=== PATIENT | male | born 1980 | race Caucasian/White ===

== ENCOUNTER → 2018-03-03 23:20 | Emergency (ER) | payer SELFPAY ==
[~2018-03-03 23:20] MED LIST: Acetaminophen TAB* 325 MG PO ONE; Albuterol/Ipratropium NEB.SOL* Albuterol 2.5 MG/Ipratropium 0.5 MG 3 ML INH ONE; Azithromycin TAB* 250 MG PO ONE; Ibuprofen TAB* 800 MG PO ONE; predniSONE TAB* 20 MG PO ONE
--- NOTE | 2018-03-04 00:07 | ED ---
Respiratory - HPI Summary HPI Summary: Patient is a 37-year-old male who presents emergency department for cough, fever and shortness of breath 3 days. Patient has a history of remote exercise -induced asthma and is a daily smoker. Patient notes he has been feeling more short of breath over the last several days and tonight was having a difficult time lying flat. Notes a productive cough. Patient notes his has a nebulizer and he didn't 4 treatments today with mild improvement. Symptoms are moderate in severity. Lying flat and activities make symptoms worse. Nothing makes symptoms better. - History of Current Complaint Chief Complaint: EDUpperRespComplaint Stated Complaint: DIFF BREATHING/SORE THROAT Time Seen by Provider: 03/03/18 23:53 Hx Obtained From: Patient Pain Intensity: 0 - Allergy/Home Medications Allergies/Adverse Reactions: Allergies Allergy/AdvReac Type Severity Reaction Status Date / Time No Known Allergies Allergy Verified 03/03/18 23:39 Home Medications: Home Medications Omeprazole CAP* 40 mg PO DAILY PRN 03/03/18 [History Confirmed 03/03/18] PMH/Surg Hx/FS Hx/Imm Hx Previously Healthy: Yes Endocrine/Hematology History: Reports: Hx Thyroid Disease Denies: Hx Diabetes Cardiovascular History: Reports: Hx Hypertension Respiratory History: Reports: Hx Asthma - IN CHILDHOOD. EXERCISE INDUCED Denies: Hx Chronic Obstructive Pulmonary Disease (COPD) GI History: Denies: Hx Ulcer Comment Only: Other GI Disorders - previous gastric ulcer Neurological History: Denies: Other Neuro Impairments/Disorders - Surgical History Surgery Procedure, Year, and Place: [place] surgery 2005 Infectious Disease History: No Infectious Disease History: Denies: Hx Hepatitis, Hx Human Immunodeficiency Virus (HIV), Traveled Outside the [place] in Last 30 Days - Family History Known Family History: Positive: Respiratory Disease - COPD - Social History Occupation: Unemployed Lives: With Family Alcohol Use: Occasionally Substance Use Type: Reports: None Smoking Status (MU): Heavy Every Day Tobacco Smoker Review of Systems Constitutional: Negative Eyes: Negative ENT: Negative Cardiovascular: Negative Positive: Shortness Of Breath, Cough Gastrointestinal: Negative Musculoskeletal: Negative Skin: Negative Neurological: Negative All Other Systems Reviewed And Are Negative: Yes Physical Exam Triage Information Reviewed: Yes Vital Signs On Initial Exam: Initial Vitals Temp Pulse Resp BP Pulse Ox 99.6 F 102 20 124/83 93 03/03/18 23:30 03/03/18 23:30 03/03/18 23:30 03/03/18 23:30 03/03/18 23:30 Vital Signs Reviewed: Yes Appearance: Positive: Well-Appearing - Pt. sitting up in bed in NAD. Family present. Breathing easily on RA. Speaking in full sentences. Obese. Skin: Positive: Warm, Dry Head/Face: Positive: Normal Head/Face Inspection Eyes: Positive: Normal, EOMI, Conjunctiva Clear ENT: Positive: Pharyngeal erythema, TMs normal. Negative: Tonsillar swelling, Tonsillar exudate Neck: Positive: Supple Respiratory/Lung Sounds: Positive: Other - Prolonged expiratory phase with wheezes throughout. No accessory muscle use, stridors, retractions. Cardiovascular: Positive: Normal, RRR Neurological: Positive: Normal, CN Intact II-III Psychiatric: Positive: Affect/Mood Appropriate Diagnostics - Vital Signs Vital Signs Temp Pulse Resp BP Pulse Ox 03/03/18 23:30 99.6 F 102 20 124/83 93 - Laboratory Lab Statement: Any lab studies that have been ordered have been reviewed, and results considered in the medical decision making process. Disposition - Course Course Of Treatment: Pt. presenting for cough and wheeze. O2 93% on RA. Pt. given duoneb, motrin and prednisone. CXR negative for infiltrate or acute change per my reading. Negative flu. ON re-exam after breathing treatment pt. is moving air better and wheezing more. Will given another breathing treatment. 0145: After second treatment pt. is feeling better and wheezing has greatly improved. O2 saturation 92% on RA. Will ambulate with pulse ox. Pulse ox was between 91-95% on RA. Pt. was talking while walking and did not feel short of breath. Pt. would like to be dc at this time stating he is feeling much better. Will start on zithromax and keep on a course of prednisone. Duoneb rx, pt. has nebulizer at home. To call the [facility] tomorrow for an apt. in 1 -2 days. To stop smoking. To return to ER if sxs change or worsen. Pt. understands and agrees with plan. - Differential Dx - Cardiopulmonary Differential Diagnoses - Cardiopulmonary: Asthma, Exacerbation Of COPD, Hypoxia , Influenza - Diagnoses Provider Diagnoses: Bronchospasm, Bronchitis Discharge - Sign-Out/Discharge Documenting (check all that apply): Patient Departure - Discharge Plan Condition: Improved Disposition: HOME Prescriptions: Albuterol/Ipratropium NEB.JUVENAL* [Duoneb (Albuterol 2.5 MG/Ipratropium 0.5 MG)] 1 neb INH Q6H PRN #30 neb.juvenal PRN Reason: Wheezing Azithromycin TAB* [Zithromax TAB (Z-JAYNE) 250 mg #6 tabs] 250 mg PO DAILY #4 tab predniSONE TAB* [Deltasone TAB*] 50 mg PO DAILY #5 tab Patient Education Materials: How to Stop Smoking (ED), Acute Bronchitis (ED), Bronchospasm (ED) Referrals: [facility] [Outside] Additional Instructions: Call the [facility] tomorrow morning to schedule a close follow up appointment Take medication as directed Stop smoking Return to ER if symptoms change or worsen - Billing Disposition and Condition Condition: IMPROVED Disposition: Home
[2018-03-04 02:28] VITALS: BP 161/98
== END | disposition home or self-care (01) ==
LOC: ED 23:20
DX: J45.990 Exercise induced bronchospasm (principal); F17.200 Nicotine dependence, unspecified, uncomplicated
CPT/HCPCS: 71046; 99283; A9270-GY; J7512

== ENCOUNTER 2018-09-12 23:10 | Emergency (ER) | payer SELFPAY ==
[2018-09-12 23:17] VITALS: BP 197/126
--- NOTE | 2018-09-12 23:35 | ED ---
Upper Extremity Pain - HPI Summary HPI Summary: This patient is a 38 year old M presenting to ED with a chief complaint of right hand pain and swelling since 1800 today. Patient was getting a dog away and punched the dog. The patient rates the pain 0/10 in severity. Symptoms aggravated by nothing. Symptoms alleviated by ice. Patient denies fever. - History of Current Complaint Chief Complaint: EDExtremityUpper Stated Complaint: BROKE RIGHT HAND PER PT Time Seen by Provider: 09/12/18 23:26 Hx Obtained From: Patient Mechanism Of Injury: Direct Blow Onset/Duration: Started Hours Ago - 1800 today, Traumatic - Punched dog, Still Present Timing: Constant Severity Initially: Mild Severity Currently: Mild Pain Location: Hand - Right Aggravating Factor(s): Nothing Alleviating Factor(s): Ice Associated Signs & Symptoms: Positive: Swelling - Allergies/Home Medications Allergies/Adverse Reactions: Allergies Allergy/AdvReac Type Severity Reaction Status Date / Time No Known Allergies Allergy Verified 03/03/18 23:39 Home Medications: Home Medications NK [No Home Medications Reported] 09/12/18 [History Confirmed 09/12/18] PMH/Surg Hx/FS Hx/Imm Hx Endocrine/Hematology History: Reports: Hx Thyroid Disease Denies: Hx Diabetes Cardiovascular History: Reports: Hx Hypertension Respiratory History: Reports: Hx Asthma - IN CHILDHOOD. EXERCISE INDUCED Denies: Hx Chronic Obstructive Pulmonary Disease (COPD) GI History: Denies: Hx Ulcer Comment Only: Other GI Disorders - previous gastric ulcer Neurological History: Denies: Other Neuro Impairments/Disorders - Surgical History Surgery Procedure, Year, and Place: finger surgery 2005 Infectious Disease History: No Infectious Disease History: Denies: Hx Hepatitis, Hx Human Immunodeficiency Virus (HIV), Traveled Outside the [place] in Last 30 Days - Family History Known Family History: Positive: Respiratory Disease - COPD - Social History Alcohol Use: None Hx Substance Use: No Substance Use Type: Reports: None Hx Tobacco Use: Yes Smoking Status (MU): Heavy Every Day Tobacco Smoker Review of Systems Negative: Fever Musculoskeletal: Other - Right hand pain and swelling All Other Systems Reviewed And Are Negative: Yes Physical Exam - Summary Physical Exam Summary: Appearance: Well-appearing, Well-nourished, lying in bed comfortable Skin: Warm, dry, no obvious rash Eyes: sclera anicteric, no conjunctival pallor ENT: mucous membranes moist Neck: deferred Respiratory: No signs of respiratory distress Cardiovascular: Appears well perfused, pulses are nml Abdomen: deferred Musculoskeletal: right hand focal swelling and tenderness over shaft of 5th metacarpal, no other deformity noted, motor function and perfusion normal Neurological: Awake and alert, mentation is normal, speech is fluent and appropriate Psychiatric: affect is normal, does not appear anxious or depressed Triage Information Reviewed: Yes Vital Signs On Initial Exam: Initial Vitals Temp Pulse Resp BP Pulse Ox 97.9 F 97 20 197/126 95 09/12/18 23:12 09/12/18 23:12 09/12/18 23:12 09/12/18 23:12 09/12/18 23:12 Vital Signs Reviewed: Yes Diagnostics - Vital Signs Vital Signs Temp Pulse Resp BP Pulse Ox 09/12/18 23:12 97.9 F 97 20 197/126 95 - Laboratory Lab Statement: Any lab studies that have been ordered have been reviewed, and results considered in the medical decision making process. - Radiology Hand XR Radiology Interpretation Completed By: ED Physician Summary of Radiographic Findings: Negative for fracture, pending official radiology report. Re-Evaluation - Re-Evaluation First Eval Re-Evaluation Time: 00:00 Comment: Discussed XR results with patient. Patient will be discharged home with dx of right hand sprain. Patient understands and agrees with this plan. Course/Dx - Course Course Of Treatment: This patient is a 38 year old M presenting to ED with a chief complaint of right hand pain and swelling since 1800 today. Right hand XR revealed negative for fracture, pending official radiology report. Patient will be discharged home with dx of right hand sprain. Patient understands and agrees with this plan. Discharge - Sign-Out/Discharge Documenting (check all that apply): Patient Departure - Discharge Patient Received Moderate/Deep Sedation with Procedure: No - Discharge Plan Condition: Good Disposition: HOME Patient Education Materials: Hand Sprain (ED) Referrals: Mehul Rodríguez MD [Medical Doctor] - 1 Week (if no better) - Attestation Statements Document Initiated by Scribe: Yes Documenting Scribe: Black Cruz Provider For Whom Scribe is Documenting (Include Credential): Peña Vegas MD Scribe Attestation: Black Barboza, scribed for Peña Vegas MD on 09/13/18 at 0001. Status of Scribe Document: Ready
== END 2018-09-13 00:02 | disposition home or self-care (01) ==
LOC: ED 23:10
DX: S63.91XA Sprain of unspecified part of right wrist and hand, initial encounter (principal); W54.8XXA Other contact with dog, initial encounter; Y92.9 Unspecified place or not applicable; I10 Essential (primary) hypertension; F17.200 Nicotine dependence, unspecified, uncomplicated
CPT/HCPCS: 99281

== ENCOUNTER 2018-12-19 00:37 | Emergency (ER) | payer BC, MEDICAID ==
[2018-12-19] MEDS ORDERED: oxyCODONE/Acetamin 5/325 MG* TAB PO ONE (03:03)
[2018-12-19] MEDS ORDERED: Albuterol 2.5 MG/3 ML NEB.SOL* (0.083%) INH ONE (03:05)
[2018-12-19] MEDS ORDERED: predniSONE TAB* 20 MG PO ONE (03:05)
--- NOTE | 2018-12-19 03:08 | ED ---
Shortness of Breath - HPI Summary HPI Summary: This pt is a 38 Y/O M presenting to [facility] accompanied by his and child with a CC of a cough and SOB that has been occurring for the last week. He states that he has had a fever and is unable to take deep breaths. He states that he feels congested. He denies any chills, diaphoresis, N/V, and headaches. He states that he has been taking Nyquil without relief. He states that he has a PMHx of Thyroid disease and HTN. He has a SHx of smoking a pack per day. He states that he has been using a breathing treatment at home without effect as well. - History of Current Complaint Chief Complaint: EDUpperRespComplaint Time Seen by Provider: 12/19/18 02:59 Hx Obtained From: Patient Onset/Duration: Gradual Onset, Lasting Weeks Timing: Constant Current Severity: Moderate Aggravating Factors: Deep Breaths Alleviating Factors: Nothing Associated Signs & Symptoms: Negative - chills, diaphoresis, N/V, and headaches , Cough (Nonproductive), Fever - Allergy/Home Medications Allergies/Adverse Reactions: Allergies Allergy/AdvReac Type Severity Reaction Status Date / Time No Known Allergies Allergy Verified 12/19/18 03:19 PMH/Surg Hx/FS Hx/Imm Hx Previously Healthy: Yes Endocrine/Hematology History: Reports: Hx Thyroid Disease Denies: Hx Diabetes Cardiovascular History: Reports: Hx Hypertension Respiratory History: Reports: Hx Asthma - IN CHILDHOOD. EXERCISE INDUCED Denies: Hx Chronic Obstructive Pulmonary Disease (COPD) GI History: Denies: Hx Ulcer Comment Only: Other GI Disorders - previous gastric ulcer Neurological History: Denies: Other Neuro Impairments/Disorders - Surgical History Surgery Procedure, Year, and Place: finger surgery 2006 Infectious Disease History: No Infectious Disease History: Denies: Hx Hepatitis, Hx Human Immunodeficiency Virus (HIV), Traveled Outside the [place] in Last 30 Days - Family History Known Family History: Positive: Respiratory Disease - COPD - Social History Occupation: Works From/At Home Lives: With Family Alcohol Use: Previous alcoholic Hx Substance Use: Yes Substance Use Type: Reports: Other Substance 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 Negative: Chills, Skin Diaphoresis Positive: Shortness Of Breath, Cough Negative: Vomiting, Nausea Negative: Headache All Other Systems Reviewed And Are Negative: Yes Physical Exam - Summary Physical Exam Summary: Appearance: morbidly obese, lying in bed comfortably Skin: Warm, dry, no obvious rash Eyes: sclera anicteric, no conjunctival pallor ENT: mucous membranes moist, pharynx appears normal Neck: Supple, nontender Respiratory: expiratory wheezing with good airation, no signs of respiratory distress Cardiovascular: Normal S1, S2. No murmurs. Normal distal pulses in tibial and radial bilaterally. Abdomen: Soft, nontender, normal active bowel sounds present Musculoskeletal: Normal, Strength/ROM Intact Neurological: A&Ox3, awake and alert, mentation is normal, speech is fluent and appropriate Psychiatric: affect is normal, does not appear anxious or depressed Triage Information Reviewed: Yes Vital Signs On Initial Exam: Initial Vitals Temp Pulse Resp BP Pulse Ox 97.9 F 86 20 179/111 95 12/19/18 00:46 12/19/18 00:46 12/19/18 00:46 12/19/18 00:46 12/19/18 00:46 Vital Signs Reviewed: Yes Procedures - Sedation Patient Received Moderate/Deep Sedation with Procedure: No Diagnostics - Vital Signs Vital Signs Temp Pulse Resp BP Pulse Ox 12/19/18 00:46 97.9 F 86 20 179/111 95 - Laboratory Result Diagrams: 12/19/18 03:43 12/19/18 03:43 Lab Statement: Any lab studies that have been ordered have been reviewed, and results considered in the medical decision making process. - Radiology CXR Radiology Interpretation Completed By: ED Physician Summary of Radiographic Findings: No acute processes. Pending offical review. Course/Dx - Course Course Of Treatment: This pt is a 38 Y/O M presenting to [facility] accompanied by his and child with a CC of a cough and SOB that has been occurring for the last week. He states that he has had a fever and is unable to take deep breaths. His PE found that he has expiratory wheezes with good aeration. His CXR shows no acute processes. He has no abnormal labratory results. Pt received a continous nebulizer. He improved on this. He will be discharged home with a Dx of bronchospams and COPD. - Diagnoses Provider Diagnoses: Bronchospasm, COPD (chronic obstructive pulmonary disease) Discharge ED - Sign-Out/Discharge Documenting (check all that apply): Patient Departure - discharge - Discharge Plan Condition: Good Disposition: HOME Prescriptions: predniSONE TAB* [Deltasone 20 MG TAB*] 40 mg PO DAILY 5 Days #10 tab Patient Education Materials: COPD (Chronic Obstructive Pulmonary Disease) (ED) , Bronchospasm (ED) Referrals: [facility] [Outside] Additional Instructions: If you don't have a doctor, you can followup with the [facility]. I strongly urge you to quit smoking. - Billing Disposition and Condition Condition: GOOD Disposition: Home - Attestation Statements Document Initiated by Christina: Yes Documenting Scribe: Tristian Cordoba Provider For Whom Christina is Documenting (Include Credential): Peña Vegas MD Scribe Attestation: Tristian Barboza, scribed for Peña Vegas MD on 12/20/18 at 1954. Scribe Documentation Reviewed: Yes Provider Attestation: The documentation as recorded by the Tristian kirby accurately reflects the service I personally performed and the decisions made by me, Peña Vegas MD Status of Scribe Document: Viewed
[2018-12-19 03:49] LABS: ABS Eosinophils 0.5 10^3/ul (0-0.6); ABS Lymphocytes 4.1 10^3/ul (1.0-4.8); ABS Monocytes 0.7 10^3/ul (0-0.8); Eosinophil % 4.4 %; Hematocrit 46 % (42-52); Hemoglobin 15.7 g/dL (14.0-18.0); Lymphocyte % 40.2 %; Mean Corpuscular HGB Conc 34 g/dL (31-36); Mean Corpuscular Hemoglobin 30 pg (27-31); Mean Corpuscular Volume 89 fL (80-94); Nucleated Red Blood Cells % 0.1; Platelet Count 214 10^3/uL (150-450); Red Blood Count 5.17 10^6 /uL (4.18-5.48); Red Cell Distribution Width 15 % (10-15); White Blood Count 10.3 10^3/uL (3.5-10.8)
[2018-12-19] MEDS ORDERED: Albuterol 0.5% CONC NEB.SOL* 5 MG/ML 20 ml BOT INH ONE (03:59)
[2018-12-19 04:05] LABS: Albumin 4.1 g/dL (3.2-5.2); Albumin/Globulin Ratio 1.5 (1-3); BUN/Creatinine Ratio 11.8 (8-20); Calcium 9.3 mg/dL (8.6-10.3); EGFR African American 91.6 (>60); EGFR Non-African American 75.7 (>60); Globulin 2.7 g/dL (2-4); Potassium 4.1 mmol/L (3.5-5.0); Total Bilirubin 0.4 mg/dL (0.2-1.0); Total Protein 6.8 g/dL (6.4-8.9)
[2018-12-19 05:49] VITALS: BP 169/80
== END 2018-12-19 05:49 | disposition home or self-care (01) ==
LOC: ED 00:37
DX: J44.9 Chronic obstructive pulmonary disease, unspecified (principal); J98.01 Acute bronchospasm; F17.210 Nicotine dependence, cigarettes, uncomplicated; R50.9 Fever, unspecified; E03.9 Hypothyroidism, unspecified; I10 Essential (primary) hypertension
CPT/HCPCS: 36415; 71046; 80053; 85025; 99283; J7512; J7611

== ENCOUNTER 2023-03-08 11:27 | Inpatient (IN) ==
[2023-03-08] MEDS ORDERED: Albuterol/Ipratropium NEB.SOL (2.5/0.5 MG) 3 ML NEB.SOLN INH ONE (11:41)
[2023-03-08 12:17] LABS: Albumin 3.6 g/dL (3.2-5.2); Albumin/Globulin Ratio 0.9 (1-3); Calcium 9.5 mg/dL (8.6-10.3); Creatinine, Serum 0.89 mg/dL (0.67-1.17); Globulin 4.1 g/dL (2-4); Potassium 3.5 mmol/L (3.5-5.0); Total Bilirubin 0.7 mg/dL (0.2-1.0); Total Protein 7.7 g/dL (6.4-8.9); eGFR CKD-EPI 111.1 (>60)
[2023-03-08 12:29] LABS: ABS Basophils 0.1 10^3/uL (0.0-0.1); ABS Eosinophils 0.5 10^3/uL (0.0-0.5); ABS Monocytes 1.3 10^3/uL (0.0-1.1); ABS Nucleated RBC 0.02 10^3/ul; Hematocrit 40.1 % (38-53); Hemoglobin 13.8 g/dL (13.2-16.3); Lymphocyte % 12.5 %; Mean Corpuscular Hemoglobin 28.6 pg (27-33); Mean Corpuscular Hgb Conc 34.3 g/dL (31-36); Mean Corpuscular Volume 83.3 fL (80-97); Mean Platelet Volume 6.8 fL (7.5-11.2); Nucleated Red Blood Cells % 0.1 %/100WBC (0.0-0.8); Platelet Count 546 10^3/uL (150-450); Red Blood Count 4.82 10^6/uL (4.06-5.63); Red Cell Distribution Width 15.7 % (12-17); White Blood Count 15.8 10^3/uL (3.6-10.2)
[2023-03-08 13:22] LABS: High Sensitivity Troponin 1 Hr 10 pg/mL (<20)
[2023-03-08] MEDS ORDERED: Albuterol 2.5mg/3 ml (0.083%) NEB.SOLN INH ONE (14:17)
[2023-03-08] MEDS ORDERED: cefTRIAXone 1 gm/50 mL D5W 1 GM/50 ML BAG IV ONE (14:17)
[2023-03-08] MEDS ORDERED: Azithromycin 500 mg/250 ml NS 500 MG/250 ML BAG IVPB ONE (14:17)
[2023-03-08] MEDS: Enoxaparin 40 MG/0.4 ML SYR SUBCUT SCH (15:25)
[2023-03-08] MEDS ORDERED: Dextrose 50% Syringe 50 ml 25 GM/50 ML SYRINGE IV PUSH PRN (16:21)
[2023-03-08] MEDS: Albuterol/Ipratropium NEB.SOL (2.5/0.5 MG) 3 ML NEB.SOLN INH SCH (19:33)
[2023-03-09] MEDS: Albuterol/Ipratropium NEB.SOL (2.5/0.5 MG) 3 ML NEB.SOLN INH SCH ×4 (07:28→19:19)
[2023-03-09] MEDS: cefTRIAXone 1 gm/50 mL D5W 1 GM/50 ML BAG IV SCH (08:55)
[2023-03-09 09:40] LABS: ABS Lymphocytes 1.6 10^3/uL (1.0-4.8); ABS Monocytes 1.3 10^3/uL (0.0-1.1); ABS Neutrophils 18.4 10^3/uL (1.5-7.6); ABS Nucleated RBC 0.01 10^3/ul; Eosinophil % 0.2 %; Hematocrit 41.4 % (38-53); Hemoglobin 14.1 g/dL (13.2-16.3); Lymphocyte % 7.6 %; Mean Corpuscular Hemoglobin 28.4 pg (27-33); Mean Corpuscular Hgb Conc 34.1 g/dL (31-36); Mean Corpuscular Volume 83.4 fL (80-97); Mean Platelet Volume 6.7 fL (7.5-11.2); Platelet Count 604 10^3/uL (150-450); Red Blood Count 4.96 10^6/uL (4.06-5.63); Red Cell Distribution Width 15.3 % (12-17); White Blood Count 21.4 10^3/uL (3.6-10.2)
[2023-03-09 09:56] LABS: Calcium 9.4 mg/dL (8.6-10.3); Creatinine, Serum 0.8 mg/dL (0.67-1.17); Potassium 3.6 mmol/L (3.5-5.0); eGFR CKD-EPI 114.7 (>60)
[2023-03-09] MEDS: Azithromycin 500 mg/250 ml NS 500 MG/250 ML BAG IVPB SCH (12:36)
[2023-03-09] MEDS ORDERED: Potassium EFFERVES 25 meq TAB PO ONE (16:08)
[2023-03-09] MEDS: Enoxaparin 40 MG/0.4 ML SYR SUBCUT SCH (17:09)
[2023-03-10 05:53] LABS: ABS Basophils 0.1 10^3/uL (0.0-0.1); ABS Eosinophils 1.1 10^3/uL (0.0-0.5); ABS Lymphocytes 3.3 10^3/uL (1.0-4.8); ABS Monocytes 1.1 10^3/uL (0.0-1.1); ABS Neutrophils 14.5 10^3/uL (1.5-7.6); Eosinophil % 5.3 %; Hematocrit 38.8 % (38-53); Hemoglobin 12.9 g/dL (13.2-16.3); Lymphocyte % 16.3 %; Mean Corpuscular Hemoglobin 27.7 pg (27-33); Mean Corpuscular Hgb Conc 33.2 g/dL (31-36); Mean Corpuscular Volume 83.5 fL (80-97); Mean Platelet Volume 6.6 fL (7.5-11.2); Platelet Count 523 10^3/uL (150-450); Red Blood Count 4.65 10^6/uL (4.06-5.63); Red Cell Distribution Width 15.2 % (12-17)
[2023-03-10] MEDS: Albuterol/Ipratropium NEB.SOL (2.5/0.5 MG) 3 ML NEB.SOLN INH SCH ×2 (07:17→11:06)
[2023-03-10] MEDS: cefTRIAXone 1 gm/50 mL D5W 1 GM/50 ML BAG IV SCH (09:18)
[2023-03-10 09:51] VITALS: BP 132/84
[2023-03-10] MEDS: Azithromycin 500 mg/250 ml NS 500 MG/250 ML BAG IVPB SCH (10:43)
== END 2023-03-10 11:45 | disposition home or self-care (01) | DRG 133 ==
LOC: ED 11:27 → EDHOLD 15:04 → SUATTDRO 15:04 → MED 16:18
PROVIDERS: ADMIT Internal Medicine; ATTEND Hospitalist